=== PATIENT | male | born 1945 | race Caucasian/White ===

== ENCOUNTER → 2016-08-22 | Outpatient (CLI) | payer OTHER, MEDICARE ==
[~2016-08-22] MED LIST: ALBU2.5V NEB; ALBU8.5H3 INH; BENZ100C4 PO; ESOM20CA31 PO; FLUT1DIS IH; FLUT1DIS5 IH; GLIP-33 PO; GUAI10LI PO; LOSA1TAB7 PO; LOSA25TA5 PO; MONT4GRA PO; OMEP-110 PO; TRAM50TA2 PO
== END | disposition home or self-care (01) ==
LOC: CFH 08:23
PROVIDERS: ATTEND Family Medicine
DX: J96.91 Respiratory failure, unspecified with hypoxia (principal)
CPT/HCPCS: 71020

== ENCOUNTER → 2016-09-29 | Outpatient (CLI) | payer OTHER, MEDICARE ==
[~2016-09-29] MED LIST changes: +OMNIPAQUE 350 MG/ML, 100ML BOTTLE ONE
== END | disposition home or self-care (01) ==
LOC: CFH 08:14
PROVIDERS: ATTEND Internal Medicine Hematology & Oncology
DX: C64.9 Malignant neoplasm of unspecified kidney, except renal pelvis (principal); K80.20 Calculus of gallbladder without cholecystitis without obstruction; K76.89 Other specified diseases of liver; K57.30 Diverticulosis of large intestine without perforation or abscess without bleeding; M51.36 Other intervertebral disc degeneration, lumbar region
CPT/HCPCS: 71260; 74177; Q9967

== ENCOUNTER → 2017-11-25 | Outpatient (CLI) | payer OTHER, MEDICARE ==
[~2017-11-25] MED LIST changes: -ALBU8.5H3 INH; +ALBU8.5H8 INH; +AMITRIPTYLINE INH; +BENZ-17 PO; -BENZ100C4 PO; +BISA10SU65 PR; +BREO INH; +CALC200T24 PO; +DEXA1TAB5 PO; +DEXA4TAB66 PO; +ENOX40SY4 SQ; +FLUT1BLS INH; +GLIP5TAB22 PO; +INSU100I11 SQ-INSULIN; +LOSA25TA2 PO; +MORP15TA3 PO; -OMNIPAQUE 350 MG/ML, 100ML BOTTLE ONE; +ONDA4TAB13 PO; +OXYC5TAB3 PO; +PANT40TA5 PO; +POLY17PO5 PO; +PRAVASTATIN PO; +RANITIDINE PO; +SENN1TAB7 PO
== END | disposition home or self-care (01) ==
LOC: ROC 09:47
PROVIDERS: ATTEND Radiology Radiation Oncology
DX: C79.51 Secondary malignant neoplasm of bone (principal); C79.31 Secondary malignant neoplasm of brain; Z85.528 Personal history of other malignant neoplasm of kidney
CPT/HCPCS: 99212; G0463